=== PATIENT | male | born 2000 | race Caucasian/White ===

== ENCOUNTER 2023-01-10 12:52 | Inpatient (IN) | payer OTHER ==
[~2023-01-10] VITALS: Ht 188 cm; Wt 107.1 kg
[2023-01-10] VITALS (30 sets, daily range): BP systolic 108–135; BP diastolic 65–84
[2023-01-10 13:06] LABS: Base Excess Venous -6.3 mmol/L; Bicarbonate Venous 19.9 mmol/L (24.0-30.0); PCO2 Venous 37.5 mmHg (38-42); pH Blood Venous 7.33 (7.34-7.37)
[2023-01-10 13:10] LABS: BASOPHILS ABSOLUTE AUTO 0.05 K/mm3 (0.00-0.23); BASOPHILS PERCENT AUTO 0 % (0-2); EOSINOPHILS ABSOLUTE AUTO 0.01 K/mm3 (0.00-0.68); EOSINOPHILS PERCENT AUTO 0 % (0-6); Hematocrit 48.6 % (37.0-53.0); Hemoglobin 17.7 g/dL (13.5-17.5); IMMATURE GRAN ABSOLUTE AUTO 0.06 K/mm3 (0.00-0.10); IMMATURE GRAN PERCENT AUTO 1 % (0-1); LYMPHOCYTES ABSOLUTE AUTO 1.53 K/mm3 (0.84-5.20); LYMPHOCYTES PERCENT AUTO 13 % (21-46); MONOCYTES ABSOLUTE AUTO 0.29 K/mm3 (0.16-1.47); MONOCYTES PERCENT AUTO 2 % (4-13); Mean Corpuscular HGB 30.1 pg (26.0-34.0); Mean Corpuscular HGB Conc 36.4 g/dL (31.5-36.5); Mean Corpuscular Volume 83 fL (80-100); Mean Platelet Volume 10.4 fL (9.1-12.4); NEUTROPHILS ABSOLUTE AUTO 10.23 K/mm3 (1.96-9.15); NEUTROPHILS PERCENT AUTO 84 % (41-73); Platelet Count 276 K/mm3 (150-400); RDW Coefficient Variation 12.6 % (11.7-14.2); RDW Standard Deviation 38.1 fL (35.1-46.3); Red Blood Cell Count 5.89 M/mm3 (4.30-5.90); White Blood Cell Count 12.17 K/mm3 (4.00-11.30)
[2023-01-10 13:31] LABS: International Normalized Ratio 1.04; Prothrombin Time Results 10.9 Sec (9.7-11.5)
[2023-01-10 13:35] LABS: Alanine Aminotransfer (ALT/SGP 42 U/L (12-78); Albumin, Blood 4.4 g/dL (3.4-5.0); Albumin/Globulin Ratio 1.1 (0.8-1.8); Alk Phos 92 U/L (50-136); Anion Gap 6 mmol/L (6-16); Aspartate Aminotrans (AST/SGOT 26 U/L (12-37); Bilirubin, Total 0.3 mg/dL (0.1-1.0); Blood Urea Nitrogen 15 mg/dL (8-24); Bun/Creatinine Ratio 15.4 (12.0-20.0); CO2, Blood 21 mmol/L (21-32); Chloride, Blood 110 mmol/L (98-108); Creatinine, Blood 0.98 mg/dL (0.60-1.20); Ethanol (Alcohol), Blood, Med <3 mg/dL; Globulin, Blood 4.1 g/dL (2.2-4.0); Glomerular Filtration Rate 113 (60-); Glucose, Blood 112 mg/dL (70-99); Potassium, Blood 4.1 mmol/L (3.5-5.5); Salicylate <1.7 mg/dL (2.8-20.0); Sodium, Blood 137 mmol/L (136-145); Total Protein, Blood 8.5 g/dL (6.4-8.2)
[2023-01-10 13:35] LABS: Calcium, Ionized (POC) 1.18 mmol/L (1.10-1.46); Chloride (POC) 108 mmol/L (98-108); Glucose (ISTAT POC) 113 mg/dL (70-99); Sodium (POC) 140 mmol/L (135-148); Total CO2 (POC) 22 mmol/L (21-32)
[2023-01-10 14:42] LABS: U Amphetamine Screen Not Detected; U Barbituate Screen Not Detected; U Benzodiazapine Screen DETECTED; U Buprenorphine Screen Not Detected; U Cannabinoids Screen Not Detected; U Cocaine Screen Not Detected; U Methadone Screen Not Detected; U Methamphetamine Screen DETECTED; U Opiates Screen Not Detected; U Oxycodone Screen Not Detected; U Phencyclidine Screen Not Detected; U Propoxyphene Screen Not Detected
[2023-01-10 18:13] LABS: Alanine Aminotransfer (ALT/SGP 42 U/L (12-78); Albumin, Blood 3.5 g/dL (3.4-5.0); Alk Phos 75 U/L (50-136); Aspartate Aminotrans (AST/SGOT 18 U/L (12-37); Bilirubin, Direct <0.1 mg/dL (0.0-0.3); Bilirubin, Indirect Unable to Calculate mg/dL (0.1-0.7); Bilirubin, Total 0.2 mg/dL (0.1-1.0); Globulin, Blood 3.5 g/dL (2.2-4.0)
--- NOTE | 2023-01-10 18:30 | NUR ---
DAY SHIFT SUMMARY PT ARRIVED FROM ER JUST BEFORE 1700 INTUBATED ON THE VENTILATOR. PT INTUBATED W 8.0 ET TUBE THAT WAS ADVANCED FROM 24CM TO 26CM BY RT PER DR. KAM ORDER, NO REPEAT XRAY PER DR. KAM. PT'S VENT UNCHANGED W SETTINGS 16/550/5.0 W 30%FIO2. SPO2 100% ON THESE SETTINGS. PT ARRIVED TO THE UNIT W MONITOR SHOWING SB 58 BUT HAS MAINTAINED SR 60'S FOR MOST OF HER TIME IN ER. BP WNL AND STABLE. PT AFEBRILE W TEMP 97.3. PT LS CLEAR EXCEPT FOR SOME MINOR RHONCI HEARD IN THE RUL. PT HAS NEAL CATHETER THAT HAD 250ML VERY CLEAR YELLOW URINE EMPTIED THIS SHIFT. PROPOFOL GTT RUNNING AT 60, FENTANYL AGRICULTURAL RESEARCH DIRECTOR RUNNING AT 50MC/HR. ACETADOTE RUNNING PER EMAR. WILL REPORT TO EVIE STEINER
[2023-01-10 20:20] LABS: Base Excess Venous -4.3 mmol/L; Bicarbonate Venous 21.4 mmol/L (24.0-30.0); PCO2 Venous 37.1 mmHg (38-42); pH Blood Venous 7.36 (7.34-7.37)
--- NOTE | 2023-01-10 21:46 | NUR ---
ASSUMED CARE CARE WAS ASSUMED OF PT AT 1900, REPORT GIVEN BY SHORTY STEINER. PT INTUBATED AND SEDATED. PROPOFOL GTT @ 60 MCG/KG/MIN. FENTANYL GTT @ 50 MCG/HR. RASS -3, PT OPENS EYES TO VOICE AND PAINFUL STIMULI BUT DOES NOT MAKE EYE CONTACT. PT TEARFUL WHEN AWAKE. PT IN BILATERAL SOFT WRIST RESTRAINTS FOR SAFETY. WHEN AWAKE PT WILL BEGIN TO PULL AGAINST RESTRAINTS AND FLEX LEGS IN THE BED. PT IS DIFFICULT TO CONSOLE, BUT EVENTUALLY RELAXES AND FALLS BACK ASLEEP. PT TOLERATING VENT WELL. VENT SETTINGS AC/VC 16/550/5/30%. O2 SATS 100%. CARDIAC MONITORING REFLECTS NSR, SBP 120s-130s. HR 60s. NAC GTT INFUSING. PT RECIEVING CHARCOAL Q4 HRS. TEMP NEAL PATENT AND DRAINING TO GRAVITY. TEMP PROBE NOT WORKING.
--- NOTE | 2023-01-10 22:01 | NUR ---
SPOKE WITH POISON CONTROL ON THE PHONE AROUND 1999. GAVE CHECKING CLERK UPDATE ON PT STATUS INCLUDING RECENT LABS AND VITALS SIGNS. CHECKING CLERK STATED THAT NAC CAN LIKELY BE STOPPED ONCE ACETAMINOPHEN LEVEL < 10 AND AST/ALT < 50.
[2023-01-11] VITALS (88 sets, daily range): BP systolic 108–141; BP diastolic 64–101
[2023-01-11 04:12] LABS: Magnesium, Blood 1.8 mg/dL (1.6-2.4)
[2023-01-11 04:15] LABS: Acetaminophen, Random <2.0 ug/mL (10.0-30.0); Alanine Aminotransfer (ALT/SGP 36 U/L (12-78); Albumin, Blood 3.5 g/dL (3.4-5.0); Alk Phos 74 U/L (50-136); Anion Gap 6 mmol/L (6-16); Aspartate Aminotrans (AST/SGOT 20 U/L (12-37); Bilirubin, Total 0.2 mg/dL (0.1-1.0); Blood Urea Nitrogen 10 mg/dL (8-24); Bun/Creatinine Ratio 11.3 (12.0-20.0); CO2, Blood 20 mmol/L (21-32); Calcium, Blood 8.5 mg/dL (8.5-10.1); Chloride, Blood 114 mmol/L (98-108); Creatinine, Blood 0.88 mg/dL (0.60-1.20); Globulin, Blood 3.4 g/dL (2.2-4.0); Glomerular Filtration Rate 125 (60-); Glucose, Blood 98 mg/dL (70-99); Potassium, Blood 3.8 mmol/L (3.5-5.5); Sodium, Blood 140 mmol/L (136-145); Total Protein, Blood 6.9 g/dL (6.4-8.2)
--- NOTE | 2023-01-11 05:57 | NUR ---
SHIFT SUMMARY PT REMAINS INTUBATED AND SEDATED. PROPOFOL CURRENTLY INFUSING @ 65 MCG/KG/MIN. FENTANYL INFUSING AT 50 MCG/HR. RASS -3 WHEN PT RESTING, RASS +1 WHEN AWAKE. PT CONTINUES TO BE IN BILATERAL SOFT WRIST RESTRAINTS. WHEN PT BECOMES ANXIOUS HE BEGINS TO PULL AGAINST RESTRAINTS TOWARDS ETT TUBE, ATTEMPTS TO SIT UP IN BED, TURNS HEAD BACK AND FORTH, AND IS TEARFUL. PT IS ABLE TO MAKE EYE CONTACT. PT IS DIFFICULT TO CONSOLE. VENT SETTINGS REMAIN AC/VC 16/550/5/30%. PT TOLERATES WELL WHEN RELAXED, BUT BEGINS TO BREATHE OVER VENT WHEN THRASHING AROUND IN BED. O2 SATS HAVE REMAINS AT 100%. CARDIAC MONITORING HAS REFLECTED NSR, HR 80s AT THIS TIME. SBP 120s-130s. REPEAT EKG DONE, SEE CHART FOR MORE. NEAL PATENT AND DRAINING TO GRAVITY. PT RECIEVED Q4 HR CHARCOAL THIS SHIFT WITH NAC STILL INFUSING.
--- NOTE | 2023-01-11 10:51 | NUR ---
SPOKE WITH FRIEND VANESSA JOY RE PT'S VEHICLE/BELONGINGS VANESSA CALLED CONCERNED THAT PATIENT'S CARE IS GOING TO BE TOWED FROM THE [facility] HERE IN [place]. VANESSA LIVES IN [place], HAS THE BILL OF SALE AND TITLE ON THE VEHICLE AND REPORTS "THIS IS WHAT PUT HIM OVER THE EDGE-IT BROKE DOWN" & SHE ALSO REPORTS HE IS IN THE PROCESS OF MOVING AND HAD TO GIVE HIS DOG AWAY, LOTS OF STRESSORS. CARE MANAGEMENT STATES WE ALSO NEEDS MOTHER'S CONSENT PRIOR TO GIVING VANESSA THE KEYS. KEYS AND PHONE ARE LOCKED UP IN THE CABINET IN THE DIRTY UTILITY HOLD. VANESSA PLANS TO COME UP TOMORROW AFTERNOON AND SHOW PROOF OF OWNERSHIP SO SHE CAN GET THE TRUCK TOWED AND FIXED. HER NUMBER IS [phone]
[2023-01-11 11:47] LABS: Alanine Aminotransfer (ALT/SGP 27 U/L (12-78); Albumin, Blood 3.4 g/dL (3.4-5.0); Albumin/Globulin Ratio 0.9 (0.8-1.8); Alk Phos 77 U/L (50-136); Anion Gap 7 mmol/L (6-16); Aspartate Aminotrans (AST/SGOT 27 U/L (12-37); Bilirubin, Total 0.4 mg/dL (0.1-1.0); Blood Urea Nitrogen 7 mg/dL (8-24); Bun/Creatinine Ratio 8.1 (12.0-20.0); CO2, Blood 21 mmol/L (21-32); Calcium, Blood 8.5 mg/dL (8.5-10.1); Chloride, Blood 116 mmol/L (98-108); Creatinine, Blood 0.87 mg/dL (0.60-1.20); Globulin, Blood 3.7 g/dL (2.2-4.0); Glomerular Filtration Rate 126 (60-); Glucose, Blood 112 mg/dL (70-99); Potassium, Blood 4.3 mmol/L (3.5-5.5); Sodium, Blood 144 mmol/L (136-145); Total Protein, Blood 7.1 g/dL (6.4-8.2)
[2023-01-11 11:48] LABS: Acetaminophen, Random <2.0 ug/mL (10.0-30.0)
--- NOTE | 2023-01-11 12:55 | NUR ---
Confirmed with Officer Jacky that Patients next of kin is Mother Matthieu Blackburn. The patient has a BMW car at the hotel in which the keys here at the hospital. Next of kin updated in chart through Mikel in Registration, YAZ Cristina updated with confirmed contact as well as not releasing any information or belongings to anyone other than the mom.
--- NOTE | 2023-01-11 18:34 | NUR ---
Shift summary. Assumed care at 0700, bedside report received.Pt continues ventilated and sedated. Vent settings: spont 10/5, 30%. OG tube clamped. Pt very restless in bed this shift, PRN sedation adjuncts required in order to safely clean and change linens. Propofol titrated up to 80 mcg/kg/min at the beginning of shift, fentanyl infusing at 50 mcg/hr, precedex added this afternoon as additional sedation adjunct, currently infusing at 0.8 mcg/kg/hr. Attempted sedation wean at 1615 this afternoon, pt initially following commands but quickly became agitated and attempted to self-extubate. Dr. Fitzgerald, charge accounts audit clerk, additional RN and security called to room in order to keep the patient from self harm while sedation was reapplied. Pt pulled r/ac IV and r/wrist IV during event. Powerglide placed in KIMBERLY. Wilson catheter remains in place. Q2 turns attempted, pt very restless, constantly shifting weight. VS stable throughout shift. See chart for further details. Will report off to nightshift RN.
--- NOTE | 2023-01-11 22:40 | NUR ---
ASSUMED CARE CARE WAS ASSUMMED OF PT AT 1900, REPORT GIVEN BY GILMAR STEINER. PT REMAINS INTUBATED AND SEDATED. PROPOFOL @ 80 MCG/KG/MIN, PRECEDEX 0.8 MCG/KG/HR AND FENTANYL GTT @ 50 MCG/HR. PT'S VENT SETTINGS SPONT/PS; PS 10, Fi02 30%, PEEP 5. PT TOLERATING WELL, O2 SATS > 95%. CARDIAC MONITORING REFLECTS NSR, SBP 120s, HR 80s. PG SL. NEAL PATENT AND DRAINING TO GRAVITY. BILATERAL WRIST RESTRAINTS IN PLACE.
[2023-01-11 22:49] LABS: Albumin, Blood 3.6 g/dL (3.4-5.0); Bilirubin, Total 0.5 mg/dL (0.1-1.0); Bun/Creatinine Ratio 5.9 (12.0-20.0); Calcium, Blood 8.7 mg/dL (8.5-10.1); Creatinine, Blood 0.85 mg/dL (0.60-1.20); Globulin, Blood 3.6 g/dL (2.2-4.0); Total Protein, Blood 7.2 g/dL (6.4-8.2)
[2023-01-12] VITALS (96 sets, daily range): BP systolic 111–154; BP diastolic 65–112
[2023-01-12 04:26] LABS: BASOPHILS ABSOLUTE AUTO 0.04 K/mm3 (0.00-0.23); BASOPHILS PERCENT AUTO 0 % (0-2); EOSINOPHILS ABSOLUTE AUTO 0.05 K/mm3 (0.00-0.68); EOSINOPHILS PERCENT AUTO 0 % (0-6); Hematocrit 41.6 % (37.0-53.0); Hemoglobin 14.3 g/dL (13.5-17.5); IMMATURE GRAN ABSOLUTE AUTO 0.07 K/mm3 (0.00-0.10); IMMATURE GRAN PERCENT AUTO 1 % (0-1); LYMPHOCYTES PERCENT AUTO 16 % (21-46); MONOCYTES ABSOLUTE AUTO 1.05 K/mm3 (0.16-1.47); MONOCYTES PERCENT AUTO 7 % (4-13); Mean Corpuscular HGB 29.2 pg (26.0-34.0); Mean Corpuscular HGB Conc 34.4 g/dL (31.5-36.5); Mean Corpuscular Volume 85 fL (80-100); Mean Platelet Volume 10.5 fL (9.1-12.4); NEUTROPHILS ABSOLUTE AUTO 11.12 K/mm3 (1.96-9.15); NEUTROPHILS PERCENT AUTO 76 % (41-73); Platelet Count 204 K/mm3 (150-400); RDW Coefficient Variation 12.6 % (11.7-14.2); RDW Standard Deviation 39.1 fL (35.1-46.3); Red Blood Cell Count 4.89 M/mm3 (4.30-5.90); White Blood Cell Count 14.73 K/mm3 (4.00-11.30)
[2023-01-12 04:39] LABS: Bun/Creatinine Ratio 5.6 (12.0-20.0); Calcium, Blood 8.5 mg/dL (8.5-10.1); Creatinine, Blood 0.9 mg/dL (0.60-1.20); Potassium, Blood 4.1 mmol/L (3.5-5.5)
--- NOTE | 2023-01-12 05:57 | NUR ---
SHIFT SUMMARY PT REMAINS INTUBATED AND SEDATED. PROPOFOL @ 75 MCG/KG/MIN, PRECEDEX @ 0.8 MCG/KG/HR, FENTANYL @ 50 MCG/HR. SEDATION WAS MINIMALLY TITRATED DOWN THIS SHIFT D/T PT GETTING ANXIOUS/RESTLESS WHENEVER TITRATION IS STOPPED FOR A SHORT AMOUNT OF TIME. ORDERS WERE ALSO RECIEVED BY DR. KAM FOR NO SEDATION VACATION THIS SHIFT. PT REMAINS ON SPONT/PS, PS 10, PEEP 5, FiO2 30%. PT HAS TOLERATED WELL, O2 SATS > 95%. CARDIAC MONITORING REFLECTED NSR THIS SHIFT. SBP 110s-120s. HR 70s-80s. PG SL. NEAL PATENT AND DRAINING TO GRAVITY. PT CONTINUES TO BE IS SOFT BILATERAL WRIST RESTRAINTS.
--- NOTE | 2023-01-12 07:00 | NUR ---
ASSUMPTION OF CARE: ASSUMED CARE OF PATIENT WITH JATIN MALDONADO. PATIENT LYING IN BED. ON SPONTANEOUS VENTILATION. SETTINGS 01/5030%. RR ARE 18-20, SPO2 97%. BREATHING LOOKS EVEN AND UNLABORED. LUNG SOUNDS CLEAR AND DIMINISHED IN THE BASES. PATIENT ETT 8.0 CM WITH 25 AT THE TEETH. SBPS IN THE 100S-120S. HR IN THE 70S. NO SIGNS OF DISTRESS. PATIENT APPEARS CALM AND COMFORTABLE. FENTANYL AT 50 MCG/HR. PROPOFOL AT 75 MCG/KG/MIN. PRECEDEX AT 0.8 MCG/KG/MIN.
--- NOTE | 2023-01-12 09:15 | NUR ---
PLANNED EXTUBATION THIS MORNING: IN PREPARATION FOR EXTUBATION THIS MORNING, PRECEDEX INCREASED TO 1.4 MCG/KG/HR WHILE TITRATING OTHER DRIPS DOWN PER DR. KAM. PROPOFOL AT 65 MCG/KG/MIN AND FENTANYL DOWN TO 25 MCG/HR.
--- NOTE | 2023-01-12 10:45 | NUR ---
EXTUBATION: PATIENT EXTUBATED AT 10:40. PATIENT TRANSITIONED TO 2L VIA NC. PROPROFOL GTT AND FENTANYL GTT DC'D PRIOR TO EXTUBATION. PRECEDEX CONTINUES AT 1.4 MCG/KG/HR. BREATHS ARE EVEN AND SHALLOW. SPO2 97%. RESPIRATIONS 22-32 RPM. PATIENT CONTINUES TO BE DROWSY. ASKING QUESTIONS. CLEARED 104 MLS FROM FENTANYL. WASTED 58 MLS FENTANYL. VERIFIED WITH JATIN CHEN AND ERICA BLACK RN.
--- NOTE | 2023-01-12 11:34 | NUR ---
PT WOKE UP SHORTLY AFTER EXTUBATION, CRYING, AGITATED, AND PULLING ON RESTRAINTS. PT WITH SEVERAL PARANOID THOUGHTS. PT INITIALLY STATED HE THOUGHT HE WAS "BEING HELD CAPTIVE IN OUTERSPACE". SHORTLY AFTER THIS PATIENT ABLE TO STATE WHY HE WAS IN THE HOSPITAL, "I OD'D. I SHOULDNT BE HERE, I WANT TO , I'M GOING TO KILL MYSELF, AND YOU CAN'T STOP ME". MY COUGHED UP LARGE COPIOUS AMT OF THICK GUTIERREZ SECRETIONS, WOULD NOT ALLOW STAFF TO CLEAN SERETIONS OR SUCTION HIM, PT THEN STARTED THRASHING IN BED AND PULLING ON RESTRAINTS. ATIVAN 2MG GIVEN. PRECEDEX GTT AT 1.4MCG. PT ALSO STATED THAT HE THOUGHT STAFF WAS GOING TO HURT HIM. AT THIS TIME PT IS AWAKE AND CRYING. PT STATES, "DON'T TELL MY MOM OR ANYONE ANY INFORMATION ABOUT ME. I SHOULD HAVE . WHY DID YOU SAVE ME. I'M IN SO MUCH PAIN EVERY DAY, YOU DON'T KNOW MY PAIN, YOU DON'T UNDERSTAND. I SHOULDN'T HAVE TO LIVE WITH THIS PAIN EVERY DAY OF MY LIFE." PT IN 4POINT TOUGH CUFF RESTRAINTS, WILL DC'D WHEN APPROPRIATE. WILL TITRATE PRECEDEX DOWN KEN. DR HUDSON AT BEDSIDE SHORTLY AFTER EXTUBATION. PT PLACED ON HOLD. PSYCH CONSULT PLACED. 1:1 SITTER AT BEDSIDE.
--- NOTE | 2023-01-12 12:00 | NUR ---
Belongings Car keys, phone and extra phone battery given to Severance in security to place with pts wallet. Only belongings in ICU soiled utility cupboard are his underwear in white plastic bag with pt label.
--- NOTE | 2023-01-12 12:15 | NUR ---
DR KAM AT BEDSIDE. PT CRYING, STATES HE IS "IN A SPACESHIP", "I'M AN ALIEN", "I ONLY HAVE 4 FINGERS". PT IN DISTRESS, MI COYNE ORDERED.
--- NOTE | 2023-01-12 13:19 | NUR ---
PRIOR TO ZYPREXA IM PT BECAME VERY AGITATEDF, THRASHING IN BED, CRYING OUT, "LET ME ". ATIVAN 2MG GIVEN. AT 1300 PT BECAME VERY AGITATED AGAIN, THRASHING IN BED, SCREAMING AND PULLING ON RESTRAINTS. PT KICKED END OF BED, BREAKING END OF BED AND BREAKING IT OFF AT HIGH IMPACT. DR KAM AT BEDSIDE. 4MG ATIVAN GIVEN, SECURITY AT BEDSIDE.
--- NOTE | 2023-01-12 13:58 | NUR ---
MARKED CONFIDENTIAL PT HAS BEEN MARKED CONFIDENTIAL, NO VISITORS OR INFORMATION TO BE GIVEN VIA PHONE OR IN PERSON REGARDING PATIENT.
--- NOTE | 2023-01-12 15:47 | NUR ---
SEVERE AGITATION: ATTEMPTED TO DECREASE VERSED GTT. PATIENT DECREASED TO 1 MG/HR. PATIENT QUICKLY BECAME INCREASINGLY AGITATED, VERBALLY AND PHYSICALLY. YELLING "PLEASE LET ME OUT". PATIENT UNABLE TO UNDERSTAND AND/OR FOLLOW EXPLANATIONS AND DIRECTIONS FROM STAFF. PATIENT UNABLE TO FOLLOW DIRECTIONS AND STOP HIS THRASHING. PATIENT TRASHING VIOLENTLY IN THE BED, SWINGING BODY SIDE TO SIDE, PULLING AT RESTRAINTS AND VIOLENTLY SHAKING THE BED. PATIENT BITING AT LINES. PATIENT VIOLENTLY BEATING HEAD AGAINST HEAD SIDE RAILS. BROUGHT EXTRA HELP INTO THE ROOM, INCLUDING DR. KAM. SECURITY CALLED RELATED TO CONCERN THAT THE PATIENT WOULD BE ABLE TO GET HIMSELF OVER THE SIDE RAILS AND/OR INJURY HIMSELF ON THE BED. PATIENT MEDICATED PER PRN ATIVAN. NEW ORDER OF IV HALDOL. PATIENT MEDICATED PER NEW ORDERS. VERSED GTT INCREASED TO 7MG/HR PER DR. KAM. SEIZURE PADS PLACED ON THE SIDE RAILS.
--- NOTE | 2023-01-12 17:43 | NUR ---
SECURITY CALLED TO ASSIST WITH BEDBATH. LARGE AMT OF LIQUID CHARCOAL BM CLEANED. LINENS CHANGED. VERSED AT 7MG/HR; STAYING AT THIS RATE FOR NOW PER DR KAM. PT WAS COOPERATIVE WITH BATH, DROWSY; FALLS ASLEEP DURING CONVERSATION BUT AWAKENS TO VOICE PROMPT. DR HIDALGO W PSYCH IN TO SEE PT, FULL UPDATE GIVEN. ZYPJOCELYNE FUNES'D, HALDOL ORDERED PER DR HIDALGO.
--- NOTE | 2023-01-12 18:30 | NUR ---
DR KAM IN TO CHECK ON PT, UPDATE GIVEN. PT ASSISTED TO LEFT SIDE. 1:1 SITTER AT BEDSIDE. etCO2 WAS PLACED ON PT WHEN VERSED GTT STARTED, 31-33. SPO2 98% ON RA
--- NOTE | 2023-01-12 18:37 | NUR ---
SHIFT SUMMARY: BY THE END OF SHIFT, PATIENT IS CALM AND COOPERATIVE WITH STAFF. PATIENT ABLE TO ASK TO BE REPOSITIONED ON HIS SIDE AND FOLLOWING DIRECTIONS TO GET INTO A COMFORTABLE POSITION. VERSED GTT CONTINUES TO BE AT 7 MG/HR PER DR. KAM. ETCO2 MONITORING NC IN PLACE. END TIDAL CO2 LEVELS CONTINUE TO BE WITHIN NORMAL LIMITS. SPO2 AT 98-100%. IMPROVED LOWER LUNG BREATH SOUNDS BY THE END OF SHIFT. NO DISTRESS NOTED. PATIENT ANSWERING QUESTIONS. PATIENT CONTINUES TO BE DROWSY AND FALLS ASLEEP WITHOUT DIRECT STIMULI. AWAKENS TO VERBAL STIMULI.
--- NOTE | 2023-01-12 19:00 | NUR ---
ASSUMED CARE CARE WAS ASSUMED OF PT AT 1900, REPORT GIVEN BY ERICA STEINER. PT SEDATED WITH VERSED GTT, INFUSING @ 7 MG/HR. PT IS ABLE TO AWAKEN WITH VERBAL STIMULI, AND IS CONSOLABLE. PT STATES HE DOESN'T KNOW WHERE HE IS AT AND WAS UNABLE TO SAY WHAT YEAR IT IS. PT NOT AGITATED AT THIS TIME. 1:1 SITTER PRESENT WITH PATIENT. UNABLE TO FULLY ASSESS PT'S SUICIDAL IDEATIONS AT THIS TIME D/T ORIENTATION. PT ON RA, WITH ETCO2 MONITORING D/T RECIEVING SEDATION. ETCO2 LOW 30s. O2 SATS > 95%. CARDIAC MONITORING REFLECTS SINUS TACH, HR 110s. SBP 130s-140s. PT REMAINS IN 4 POINT TOUGH-CUFFS FOR SAFETY. NEAL CATHETER PATENT AND DRAINING TO GRAVITY. PT CONTINUES TO HAVE LARGE, BLACK, LIQUID STOOL WHICH IS CONSISTENT WITH RECIEVING CHARCOAL PREVIOUS SHIFTS.
[2023-01-13] VITALS (85 sets, daily range): BP systolic 110–162; BP diastolic 64–114
[2023-01-13 03:53] LABS: BASOPHILS ABSOLUTE AUTO 0.09 K/mm3 (0.00-0.23); BASOPHILS PERCENT AUTO 1 % (0-2); EOSINOPHILS ABSOLUTE AUTO 0.08 K/mm3 (0.00-0.68); EOSINOPHILS PERCENT AUTO 1 % (0-6); Hemoglobin 13.9 g/dL (13.5-17.5); IMMATURE GRAN ABSOLUTE AUTO 0.13 K/mm3 (0.00-0.10); IMMATURE GRAN PERCENT AUTO 1 % (0-1); LYMPHOCYTES ABSOLUTE AUTO 2.44 K/mm3 (0.84-5.20); LYMPHOCYTES PERCENT AUTO 14 % (21-46); MONOCYTES ABSOLUTE AUTO 1.25 K/mm3 (0.16-1.47); MONOCYTES PERCENT AUTO 7 % (4-13); Mean Corpuscular HGB 29.4 pg (26.0-34.0); Mean Corpuscular HGB Conc 34.8 g/dL (31.5-36.5); Mean Corpuscular Volume 85 fL (80-100); Mean Platelet Volume 10.8 fL (9.1-12.4); NEUTROPHILS ABSOLUTE AUTO 13.44 K/mm3 (1.96-9.15); NEUTROPHILS PERCENT AUTO 77 % (41-73); Platelet Count 200 K/mm3 (150-400); RDW Coefficient Variation 12.8 % (11.7-14.2); RDW Standard Deviation 39.3 fL (35.1-46.3); Red Blood Cell Count 4.73 M/mm3 (4.30-5.90); White Blood Cell Count 17.43 K/mm3 (4.00-11.30)
[2023-01-13 04:17] LABS: Albumin, Blood 3.3 g/dL (3.4-5.0); Albumin/Globulin Ratio 0.8 (0.8-1.8); Bilirubin, Total 0.6 mg/dL (0.1-1.0); Calcium, Blood 8.6 mg/dL (8.5-10.1); Creatinine, Blood 0.89 mg/dL (0.60-1.20); Potassium, Blood 3.4 mmol/L (3.5-5.5); Total Protein, Blood 7.3 g/dL (6.4-8.2)
--- NOTE | 2023-01-13 05:26 | NUR ---
SHIFT SUMMARY PT IS ALERT AND ORIENTED TO SELF AND OCCASIONALLY PLACE. THROUGHOUT THE SHIFT PT'S ORIENTATION WAS ASSESSED AND OFTEN PT WOULD NOT BE ABLE TO SAY WHERE HE WAS. PT REMAINS IN FOUR POINT TOUGH-CUFFS. PT WOULD OCCASIONALLY GET AGITATED T/O THE SHIFT BUT DID NOT HAVE ANY OUT BURSTS. WHEN ASKED, PT STATED HE DID NOT HAVE SUICIDAL IDEATIONS. PT'S VERSED GTT @ 7 MG/HR. PT ON RA WITH ETCO2 MONITORING D/T SEDATION BEING GIVEN. ETCO2 HAS STAYED AROUND 30 THIS SHIFT. O2 SATS > 95%. CARDIAC MONITORING REFLECTED SINUS TACH, HR 110s. SBP 120s-130s. NEAL PATENT AND DRAINING TO GRAVITY. PT HAS HAD MULTIPLE INCONTINENT BMs THIS SHIFT. WILL CONTINUE TO MONITOR UNTIL CARE IS TRANSITIONED TO DAY SHIFT.
--- NOTE | 2023-01-13 07:00 | NUR ---
ASSUMPTION OF CARE: ASSUMED CARE OF PATIENT WITH KRISTY VINES RN. PATIENT RESTING CALMLY IN BED. PATIENT WORKING TO OPEN EYES AND FOLLOW DIRECTIONS WITH VERBAL STIMULI. VERSED GTT CONTINUES AT 7 MG/HR. PATIENT SHIFTING WEIGHT INDEPENDENTLY IN THE BED. NEAL IN PLACE. URINE IS DARK YELLOW. PATIENT ON RA WITH SPO2 IN THE HIGH 90S. HR IS TACHY IN THE LOW 100S. SBP IN THE 120S TO 140S.
--- NOTE | 2023-01-13 07:59 | NUR ---
Case analysis requested and performed. Medical history, clinical notes, and demographics reviewed. Concerns expressed relating to the proper selection and appointment of a substitute decision maker; while the principal recovers from his incapacitation. In his post extubation condition, the principal is reported to have adamantly voiced his preference to be listed as confidential, and was sternly refusing outside green party involvement. If these statements have been validated and were credibly witnessed i.e. they were observed when the principal was in a lucid condition, then they should be unreservedly honored. If the principal decompensates and is unable to make health care choices independantly; to maintain compliance with [place] Statutory provisions, and shield the principal from a breach of requested privacy; assuming the mother has not been disqualified in writing by the patient from serving as proxy, the hospital would default to her for treatment planning (ORS 127.635). If she were formally disallowed from acting on his behalf, or she preferred to delegate that responsibility, then the ethics committee would be appointed to give informed consent on his behalf, for medically necessary services per ORS 127.760. Thank you for this consult. Andrae Ayon, PhD, TINY
[2023-01-13 08:56] LABS: Source, Urine Foley catheter
[2023-01-13 09:03] LABS: Appearance, Urine Clear (Clear); Bilirubin, Urine Neg (Neg); Blood, Urine 2+ (Neg); Color, Urine Yellow (P-Yellow); Glucose Qualitative, Urine Neg (Neg); Ketones, Urine 4+ (Neg); Leukocyte Esterase, Urine 1+ (Neg); Nitrite, Urine Neg (Neg); Protein, Urine 2+ (Neg); Specific Gravity, Urine 1.025 (1.003-1.022); Urobilinogen, Urine NORM (Normal)
[2023-01-13 11:44] LABS: White Blood Cells, Urine 0-2 /hpf (0-5)
[2023-01-13 11:45] LABS: Bacteria Few /hpf; Mucus Light (0-Heavy); Squamous Epithelial Cells Rare /hpf (Few)
--- NOTE | 2023-01-13 18:42 | NUR ---
SHIFT SUMMARY: NEURO: PATIENT HAD INCREASING ALERTNESS THROUGHOUT THE DAY. PATIENT ABLE TO TELL RN THAT HE WAS IN THE HOSPITAL AND WHY HE WAS HERE. PATIENT NOT ORIENTED TO YEAR OR TIME OF DAY. PATIENT CONTINUES TO BE DROWSY, BUT ABLE TO STAY AWAKE TO EAT. PATIENT ABLE TO MAKE HIS NEEDS KNOWN. PATIENT CALM AND COOPERATIVE. IMPROVED FINE MOTOR SKILLS THE DAY PROGRESSED. PSYCHSOCIAL: PATIENT REQUESTED THAT NO INFORMATION BE RELASED TO FAMILY OR FRIENDS AT THIS TIME. PATIENT RESPONDS TO SOME QUESTIONS, BUT NOT TO OTHERS. DIFFICULT TO ASSESS IF THIS IS PURPOSEFUL OR RELATED TO SEDATIVE MEDICATIONS CLEARING FROM HIS SYSTEM. PATIENT CALM AND COOPERATIVE. PATIENT WITHDRAWN. PATIENT DID NOT SHOW SIGNS OF AGITATION, AGRESSION OR SELF HARM. CONTINUES TO HAVE 1:1 SITTER. CARDIAC: PATIENT SINUS TO SINUS TACHY. PATIENT DENIES CHEST PAIN OR DISCOMFORT. SBPS IN THE 120S - 140S. MAPS >65. RESPIRATORY: LUNG SOUNDS REMAINED CLEAR. PATIENT REMAINED STABLE ON RA WITH SPO2 AT 98%. NO SPUTUM NOTED TODAY. BREATHING EVEN AND REGULAR. GI: CONTINUES TO HAVE BLACK STOOL R/T CHARCOL ADMINISTRATION. PATIENT DENIES NAUSEA. PATIENT TOLERATING PO SOLIDS AND FLUIDS. : NEAL DISCONTINUED TODAY. PATIENT IS DUE TO VOID. PATIENT DENIES URGE. MUSCULOSKELETAL: PATIENT'S MOVEMENT AND STRENGTH INTACT THROUGHOUT ALL 4 EXTREMITIES. RELATED TO PATIENT'S DROWSINESS, MAINTAINED BEDREST FOR TODAY. PATIENT REPOSITIONING INDEPENDENTLY IN THE BED. DENIES PAIN AT REST OR WITH MOTION.
--- NOTE | 2023-01-13 19:15 | NUR ---
ASSUMPTION OF CARE: RECEIVED REPORT FROM RUPESH STEINER. PT APPEARS TO BE DROWSY/ TIRED BUT AWAKENS TO VERBAL STIMULI. ABLE TO ANSWER QUESTIONS AND MAKE NEEDS KNOWN. DENIES ANY SUICIDAL IDEATION AT THIS TIME. ALERT AND ORIENTED TO PERSON, PLACE AND SITUATION. UNAWARE OF THE DAY/TIME. LUNGS SOUNDS CLEAR IN THE UPPER LOBES AND DIMINISHED IN THE BASES. ON RA WITH SATS >90%. DENIES ANY SOB. CARDIAC MONITORING IN PLACE, SINUS RHYTHM WITH RATE IN THE 80'S-100'S. DENIES CHEST PAIN OR PRESSURE. BLADDER SCAN DONE POST NEAL REMOVAL WHICH SHOWED 373 ML, PT ATTEMPTED TO USE URINAL AND WAS UNSUCCESSFUL AT THIS TIME. SMALL BLACK BM CONSISTENT WITH CHARCOAL THAT WAS GIVEN. PT C/O STOMACH PAIN AND HAS A HEADACHE, PROVIDED REPOSITIONING AND TURNED THE LIGHTS OFF FOR REST. 1:1 SITTER AT THE DOOR FOR HIGH RISK SI PRECAUTIONS. PT EDUCATED ON THE IMPORTANCE OF THE SITTER AND EDUCATED ON THE 2MD HOLD. PT COMPLIANT WITH STAFF AT THIS TIME. POWERGLIDE TO KIMBERLY, SALINE LOCKED CURRENTLY. ABLE TO TOLERATE WATER AND A SNACK PO.
[2023-01-14] VITALS (32 sets, daily range): BP systolic 105–149; BP diastolic 61–98
[2023-01-14 04:40] LABS: BASOPHILS ABSOLUTE AUTO 0.06 K/mm3 (0.00-0.23); BASOPHILS PERCENT AUTO 1 % (0-2); EOSINOPHILS ABSOLUTE AUTO 0.14 K/mm3 (0.00-0.68); EOSINOPHILS PERCENT AUTO 1 % (0-6); Hematocrit 39.5 % (37.0-53.0); Hemoglobin 13.6 g/dL (13.5-17.5); IMMATURE GRAN ABSOLUTE AUTO 0.07 K/mm3 (0.00-0.10); IMMATURE GRAN PERCENT AUTO 1 % (0-1); LYMPHOCYTES ABSOLUTE AUTO 2.15 K/mm3 (0.84-5.20); LYMPHOCYTES PERCENT AUTO 20 % (21-46); MONOCYTES ABSOLUTE AUTO 0.78 K/mm3 (0.16-1.47); MONOCYTES PERCENT AUTO 7 % (4-13); Mean Corpuscular HGB 29.1 pg (26.0-34.0); Mean Corpuscular HGB Conc 34.4 g/dL (31.5-36.5); Mean Corpuscular Volume 84 fL (80-100); Mean Platelet Volume 10.2 fL (9.1-12.4); NEUTROPHILS ABSOLUTE AUTO 7.34 K/mm3 (1.96-9.15); NEUTROPHILS PERCENT AUTO 70 % (41-73); Platelet Count 200 K/mm3 (150-400); RDW Standard Deviation 39.4 fL (35.1-46.3); Red Blood Cell Count 4.68 M/mm3 (4.30-5.90); White Blood Cell Count 10.54 K/mm3 (4.00-11.30)
[2023-01-14 05:04] LABS: Albumin, Blood 3.1 g/dL (3.4-5.0); Albumin/Globulin Ratio 0.7 (0.8-1.8); Bilirubin, Total 0.5 mg/dL (0.1-1.0); Bun/Creatinine Ratio 9.3 (12.0-20.0); Calcium, Blood 8.7 mg/dL (8.5-10.1); Creatinine, Blood 0.86 mg/dL (0.60-1.20); Globulin, Blood 4.2 g/dL (2.2-4.0); Potassium, Blood 3.6 mmol/L (3.5-5.5); Total Protein, Blood 7.3 g/dL (6.4-8.2)
--- NOTE | 2023-01-14 05:51 | NUR ---
SHIFT SUMMARY: PT REMAINS ALERT AND ORIENTED X4. CALM AND COOPERATIVE WITH CARE T/O THE SHIFT. ABLE TO ANSWER QUESTIONS AND MAKE NEEDS KNOWN. PT DENIES SUICIDAL IDEATION. REMAINS ON RA T/O THE SHIFT WITH SPO2 >92%. DENIES SOB. CARDIAC MONITORING IN PLACE SINUS RHYTHM, HR 80'S. DENIES CHEST PAIN OR PRESSURE. BLADDER SCANNED FREQUENTLY T/O THE SHIFT, PT ATTEMPTED TO VOID AND WAS UNSUCCESSFUL. STRAIGHT CATHED WITH 1000 ML URINE OUTPUT. SMALL BM EARLY IN THE SHIFT. POWERGLIDE TO KIMBERLY, FLUSHES WELL DOES NOT DRAW. SALINE LOCKED AT THIS TIME. PT ABLE TO SLEEP OFF AND ON T/O THE SHIFT. STILL HAS C/O HEADACHE, WORSENED WITH THE LIGHTS. REPOSITIONING AND DARK, QUIET ROOM WHEN ABLE HELPED TO RELEIVE HEADACHE. PT TOLERATING PO INTAKE WELL WITH NO C/O NAUSEA OR VOMITING. 1:1 SITTER REMAINS AT THE DOOR.
--- NOTE | 2023-01-14 11:07 | NUR ---
ASSUMPTION OF CARE: PATIENT RESTING QUIETLY IN BED. AWAKES TO VERBAL STIMULI. PATIENT REPORTS ABDOMINAL DISCOMFORT FROM THE NIGHT IS GONE AND THAT HIS HEADACHE IS IMPROVED. PATIENT APPEARS COMFORTABLE. PATIENT ON RA WITH SPO2 >96%. BREATHS ARE EVEN AND REGULAR. SBPS IN THE 120S.
--- NOTE | 2023-01-14 15:33 | NUR ---
TRANSFER TO [facility] FLOOR 13:40: PATIENT TRANSFERRED TO MEDICAL UNIT AROUND 13:40. REPORT CALLED TO TINY Redding RN. PATIENT NOTIFIED OF PLAN TO TRANSFER. PATIENT ABLE TO STAND AND TRANSFER TO WITH MIN ASSISTANCE. PATIENT CALM AND COOPERATIVE. NOTIFIED VANESSA, FRIEND ARRIVING TODAY TO OBTAIN CAR KEYS, OF TRANSFER. VERIFIED WITH PATIENT AGAIN THAT IT WAS OKAY FOR HER TO TAKE THE KEYS TO MOVE HIS CAR. THE PATIENT AGREED.
--- NOTE | 2023-01-14 19:13 | NUR ---
1:1 AT BEDSIDE, PATIENT ALERT AND ORIENTED X4, MAKES NEEDS KNOWN, PATIENT DROWSY, ROOM MITIGATED, PATIENT DENIED SI, VSS, ATE DINNER, PHONE CHARGING, FRIEND VANESSA CAME AND TOOK PATIENTS CAR [employer], SECURITY WITNESSED THIS, CALL LIGHT WITH IN REACH, RELAYED TO PM RN
--- NOTE | 2023-01-15 04:31 | NUR ---
SHIFT SUMMARY PT A&O X4, CALM AND COOPERATIVE WITH CARE. SITTER IN PLACE IN ROOM. SUICIDE SAFETY AND MITIGATION DONE Q4 HRS. SUICIDE REASSESMENT COMPLETED. NO SI SYMPTOMS PRESENTED. PT RESPONDS TO YES/NO QUESTIONS BUT IS NOT TALKATIVE. STAYED IN BED T/O SHIFT. GOT UP TO RESTROOM WITH 1P ASSIST AND VOIDED. NO NEED TO BLADDER SCAN THIS SHIFT. PT DENIES ANY PAIN OR N/V. REMAINS A CONFIDENTIAL PATIENT. PG TO KIMBERLY SALINE LOCKED. NO ACUTE EVENTS OVERNIGHT. BED KEPT IN THE LOWEST POSITION WITH 1:[address] DOORWAY. WILL CONTINUE TO MONITOR UNTIL SHIFT END.
[2023-01-15 05:19] VITALS: BP 117/69
[2023-01-15 07:04] VITALS: BP 131/79
[2023-01-15 15:05] LABS: Albumin, Blood 3.5 g/dL (3.4-5.0); Albumin/Globulin Ratio 0.7 (0.8-1.8); Bilirubin, Total 0.2 mg/dL (0.1-1.0); Bun/Creatinine Ratio 10.6 (12.0-20.0); Creatinine, Blood 0.76 mg/dL (0.60-1.20); Globulin, Blood 4.7 g/dL (2.2-4.0); Total Protein, Blood 8.2 g/dL (6.4-8.2)
[2023-01-15 15:16] VITALS: BP 126/76
--- NOTE | 2023-01-15 19:29 | NUR ---
PATIENT CLEARLY MAKES NEEDS KNOWN, DENIED SI FOR THE LAST TWO DAYS, FRIENDS HELPFUL AT BEDSIDE, PATIENT SHOWERED, BM DARK DUE TO CHARCOAL, ABD US DONE TODAY, LIVER ENZYMES ELEVATED MORE. DR KAUR ROUNDED ON PATIENT AT NOON, REPORTED PATIENTS COMPLIANCE AND DENIES SI, PATIENT PLEASANT TO ALL STAFF, NO SIGNS OF AGGRESION OR FUSTRATION. PATIENT REPORTS FEELING DIZZY WHEN GETTING UP, EASILY WALKED TO BATHROOM STEADY GAIT. PATIENT REPORTED LEFT ABD PAIN, RESOLVED. DR MORALEZ ROUNDED ALSO AND ORDERED LABS. PATIENT APOLOGETIC AND PLEASANT, CALL LIGHT WITH IN REACH, 1:1 AT BEDSIDE
[2023-01-15 21:35] VITALS: BP 134/78
--- NOTE | 2023-01-15 22:48 | NUR ---
PATIENT IS EXTREMELY GROGGY THIS EVENING, AND IS CONCERNED THAT "SOMETHING MIGHT BE WRONG INSIDE MY BRAIN". HE STATES THAT HIS VISION WILL GET BLURRY OR (GLAZED) AND HIS MOVEMENTS BECOME INTERMITTANTLY "JERKY". SOMETIMES THIS HAPPENS AT WORK MAKING IT IMPOSSIBLE FOR HIM TO SAFELY DO HIS JOB. HE IS ASKING IS THERE IS SOME WAY TO "CHECK IF WHAT'S GOING ON IS SOMETHING WRONG IN HIS BRAIN. TONIGHT, EYES ARE HALF CLOSED, AND PATIENT IS SLIGHTLY SWAYING SITTING UP AT THE SIDE OF THE BED WHILE HOLDING HIMSELF UP WITH HIS HANDS. HE REQUESTED A SHOWER TONIGHT, BUT I DID NOT FEEL THAT THIS WOULD BE SAFE IN HIS CURRENT STATE.
--- NOTE | 2023-01-16 04:23 | NUR ---
PATIENT SLEPT WELL ALL NIGHT WAKING ONLY ONCE TO USE THE BATHROOM AND HAVE A SNACK. SITTER IN PLACE AT ALL TIMES. 2400 ATIVAN AND HALDOL HELD PATIENT WAS EXTREMELY SOMNOLENT. PATIENT WAS VERY WOBBLY AND GLASSY EYED PRIOR TO FALLING ASLEEP. HE HAD REQUESTED A SHOWER, HOWEVER THIS RN WAS CONCERNED HE COULD BARELY HOLD HIMSELF UP SITTING ON THE SIDE OF THE BED. PATIENT HAD MENTIONED HIS CONCERN THAT HE HAS HAD INTERMITTANT EPISODES OF BLURRED VISION IN CONJUNCTION WITH UNCONTROLLABLE JERKING OF HIS HANDS. WHEN THIS HAS HAPPENED, HE HAS HAD DIFFICULTY PERFORMING HIS WORK PROPERLY. TYSON ASKED IF THERE IS A TEST TO FIND OUT IF THERE IS SOMETHING (WRONG WITH HIS BRAIN).
[2023-01-16 05:20] VITALS: BP 130/74
[2023-01-16 05:42] LABS: BASOPHILS ABSOLUTE AUTO 0.05 K/mm3 (0.00-0.23); BASOPHILS PERCENT AUTO 1 % (0-2); EOSINOPHILS ABSOLUTE AUTO 0.19 K/mm3 (0.00-0.68); EOSINOPHILS PERCENT AUTO 2 % (0-6); Hematocrit 39.1 % (37.0-53.0); Hemoglobin 13.4 g/dL (13.5-17.5); IMMATURE GRAN ABSOLUTE AUTO 0.07 K/mm3 (0.00-0.10); IMMATURE GRAN PERCENT AUTO 1 % (0-1); LYMPHOCYTES ABSOLUTE AUTO 2.17 K/mm3 (0.84-5.20); LYMPHOCYTES PERCENT AUTO 25 % (21-46); MONOCYTES ABSOLUTE AUTO 0.68 K/mm3 (0.16-1.47); MONOCYTES PERCENT AUTO 8 % (4-13); Mean Corpuscular HGB 29.1 pg (26.0-34.0); Mean Corpuscular HGB Conc 34.3 g/dL (31.5-36.5); Mean Corpuscular Volume 85 fL (80-100); Mean Platelet Volume 10.1 fL (9.1-12.4); NEUTROPHILS ABSOLUTE AUTO 5.39 K/mm3 (1.96-9.15); NEUTROPHILS PERCENT AUTO 63 % (41-73); Platelet Count 247 K/mm3 (150-400); RDW Coefficient Variation 12.5 % (11.7-14.2); RDW Standard Deviation 38.2 fL (35.1-46.3); White Blood Cell Count 8.55 K/mm3 (4.00-11.30)
[2023-01-16 06:07] LABS: Albumin, Blood 3.3 g/dL (3.4-5.0); Albumin/Globulin Ratio 0.8 (0.8-1.8); Bilirubin, Total 0.2 mg/dL (0.1-1.0); Bun/Creatinine Ratio 13.9 (12.0-20.0); Calcium, Blood 9.2 mg/dL (8.5-10.1); Creatinine, Blood 0.79 mg/dL (0.60-1.20); Globulin, Blood 4.3 g/dL (2.2-4.0); Potassium, Blood 3.7 mmol/L (3.5-5.5); Total Protein, Blood 7.6 g/dL (6.4-8.2)
[2023-01-16 07:23] VITALS: BP 129/77
[2023-01-16 15:10] VITALS: BP 125/66
--- NOTE | 2023-01-16 16:52 | NUR ---
SHIFT SUMMARY: Pt remains A&Ox3 this shift. VSS. Pain med for lower back pain effective. Pt denies suicidal ideation this shift. Very calm, cooperative and pleasant. Ambulating independently. 1:1 sitter at bedside. Continent of bowel/bladder. Tolerating diet. No further needs at this time. Will continue to monitor this shift.
[2023-01-16 19:40] VITALS: BP 129/82
--- NOTE | 2023-01-17 03:56 | NUR ---
SHIFT SUMMARY. SHIFT HAS BEEN MOSTLY UNREMARKABLE. PT AOX4, PLEASANT, COOPERATIVE WITH CARE. 1:[address] FOR PT SAFETY. SUICIDE RISK REASSESSMENT PERFORMED AT BEGINNING OF SHIFT AT WHICH TIME PT DENIED ANY RECENT OR CURRENT SI. PT COMPLAINED OF SOME LOWER BACK PAIN EARLY IN SHIFT. CALLED HOSPITALIST AYESHA PRN MOTRIN WAS NOT YET AVAILABLE, ADMINISTERED PRN FLEXERIL ORDERED BY AYESHA SINCE WHICH TIME PT HAS BEEN SLEEPING COMFORTABLY IN BED. REPORTED THAT PT WAS FEELING RESTLESS EARLY IN SHIFT TO AYESHA AND HE SWITCHED SCHEDULED ORAL HALDOL TO PRN. HAVE NOT ADMINISTERED PRN HALDOL OR SCHEDULED ATIVAN PT HAS BEEN SLEEPING COMFORTABLY THROUGHOUT SHIFT AFTER PRN FLEXERIL ADMINISTRATION. SATTING WELL ON ROOM AIR. INDEPENDENT WITHIN ROOM OUTSIDE OF SITTER REMAINING IN PLACE FOR SAFETY. BED LOCKED IN LOWEST POSITION. CALL LIGHT LEFT WITHIN REACH.
[2023-01-17 04:51] VITALS: BP 117/70
[2023-01-17 06:56] LABS: Albumin, Blood 3.2 g/dL (3.4-5.0); Albumin/Globulin Ratio 0.8 (0.8-1.8); Bilirubin, Total 0.3 mg/dL (0.1-1.0); Creatinine, Blood 0.8 mg/dL (0.60-1.20); Potassium, Blood 3.9 mmol/L (3.5-5.5); Total Protein, Blood 7.2 g/dL (6.4-8.2)
[2023-01-17 07:26] VITALS: BP 118/63
[2023-01-17 15:45] VITALS: BP 123/73
--- NOTE | 2023-01-17 17:31 | NUR ---
SHIFT SUMMARY PATIENT DENIES ANY SUICIDAL IDEATION DURING THIS SHIFT. HE DOES EXPRESS ANXIETY AND PAIN. MEDICATED PER EMAR. PATIENT UP AND WALKING ORDAZ WITH SITTER. HE IS TALKATIVE LAST COUPLE HOURS OF SHIFT. BED IN LOW POSITION. CALL LIGHT IN REACH. PATIENT MAKES HIS NEEDS KNOWN. WILL CONTINUE TO MONITOR.
[2023-01-17 19:53] VITALS: BP 119/65
[2023-01-17] MEDS ORDERED: CYMBALTA20 M2 PO (20:03)
[2023-01-17] MEDS ORDERED: Ventolin/Prove6.7 GM INH (20:04)
--- NOTE | 2023-01-18 03:46 | NUR ---
SHIFT SUMMARY. SHIFT HAS BEEN MOSTLY UNREMARKABLE. PT AOX4, PLEASNT, COOPERATIVE WITH CARE. DENIED ANY SI OR NEW THOUGHTS OF SELF HARM CURRENTLY OR PLANS FOR SELF HARM POST DISCHARGE ON QSHIFT SUICIDE RISK REASSESSMENT. ANXIOUS TO LEAVE AND STATES THAT HE IS TIRED OF BEING IN THE HOSPITAL. HOPING TO GET PLACEMENT BEFORE MONDAY BUT STATES THAT IF PLACEMENT IS NOT ACQUIRED BY MONDAY HE MAY JUST GO HOME HE DOES NOT WANT TO TBE IN THE HOSPITAL ANYMORE. NO PAIN REPORTED THIS SHIFT. SWITCHED PO SCHEDULED ATIVAN TO PRN PER ORDER OF HOSPITALIST AYESHA. PT HAS BEEN ABLE TO SLEEP THROUGH MOST OF SHIFT THUS FAR AFTER PO ATIVAN ADMINISTRATION. 1:[address] PT CALLS APPROPRIATELY AND IS ABLE TO MAKE NEEDS KNOWN. INDEPENDENT WITHIN ROOM. BED LOCKED IN LOWEST POSITION.
[2023-01-18 05:43] VITALS: BP 126/75
[2023-01-18 07:26] VITALS: BP 120/63
[2023-01-18 14:44] LABS: SARS-Cov-2 (COVID-19) PCR, MMC NEGATIVE (NEGATIVE)
[2023-01-18 16:13] VITALS: BP 120/63
--- NOTE | 2023-01-18 16:18 | NUR ---
SECURE TRANSPORT CALL TO [facility], TRANSPORTATION [employer] FOR PATIENT'S INSURANCE [facility], IN [facility]. SECURE TRANSPORT SCHEDULED FOR 1800 FROM [facility] TO [facility] FOR INPATIENT PSYCHIATRIC TREATMENT.
--- NOTE | 2023-01-18 19:15 | NUR ---
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 PATIENT REQUESTING HIS WALLET. SPOKE WITH SECURITY. ALL WAS SIGNED OUT ON MONDAY. IT IS NOTED THAT FRIEND VANESSA GARCIA PICKED UP WALLET AFTER THE KEYS PER RN REQUEST. PATIENT HAS BEEN UPDATED ON HIS BELONGINGS STATUS AND SATISFIED WITH ANSWER. PATIENT AGREABLE TO GO TO INPATIENT REHAB FOR NOW. SECURE TRANSPORT ARRIVED AT 1845. PAPERS GIVEN TO STAFF, PATIENT COOPERATTIVE WITH ALL CARE. RN TO RN REPORT GIVEN TO JATIN TAVARES AT [facility] AT 1440 THIS AFTERNOON.
== END 2023-01-18 18:46 | DRG 917 ==
LOC: ER 12:52 → ICUE 15:48 → MEDS 15:48 → ICUE 15:48 → MEDS 01-14 13:49 → ENPENDDIS 01-18 16:16 → MEDS 01-18 18:46
PROVIDERS: Internal Medicine; Internal Medicine Critical Care Medicine; Student in an Organized Health Care Education/Training Program; ADMIT Hospitalist
PROC: 5A1945Z Respiratory Ventilation, 24-96 Consecutive Hours (ICD-10-PCS; principal; 2023-01-10)
PROC: 0BH17EZ Insertion of Endotracheal Airway into Trachea, Via Natural or Artificial Opening (ICD-10-PCS; 2023-01-10)
PROC: 0DH67UZ Insertion of Feeding Device into Stomach, Via Natural or Artificial Opening (ICD-10-PCS; 2023-01-13)
DX: T39.1X2A Poisoning by 4-Aminophenol derivatives, intentional self-harm, initial encounter (principal); G92.8 Other toxic encephalopathy; J96.00 Acute respiratory failure, unspecified whether with hypoxia or hypercapnia; T17.828A Food in other parts of respiratory tract causing other injury, initial encounter; R94.5 Abnormal results of liver function studies; F25.9 Schizoaffective disorder, unspecified; T45.0X2A Poisoning by antiallergic and antiemetic drugs, intentional self-harm, initial encounter; T44.4X2A Poisoning by predominantly alpha-adrenoreceptor agonists, intentional self-harm, initial encounter; T44.3X2A Poisoning by other parasympatholytics [anticholinergics and antimuscarinics] and spasmolytics, intentional self-harm, initial encounter; T48.3X2A Poisoning by antitussives, intentional self-harm, initial encounter; F43.20 Adjustment disorder, unspecified; Z20.822 Contact with and (suspected) exposure to COVID-19; F15.10 Other stimulant abuse, uncomplicated; R45.1 Restlessness and agitation; R16.0 Hepatomegaly, not elsewhere classified; M54.50 Low back pain, unspecified; Z78.1 Physical restraint status
CPT/HCPCS: 36415; 51701; 51702; 70450; 71045; 76705; 80047; 80048; 80053; 80076; 81001; 82140; 82550; 82803; 82947; 83605; 83690; 83735; 85014; 85025; 85610; 93005; 93010; 94002; 94003; 94762; 96361-59; 96365-59; 96376-59; 99285-25; A9270; C1751; C9113; G0480; J0132; J0696; J1630; J1650; J1885; J2060; J2250; J2704; J3010; J3480; J7030; J7050; J7060; J7070; U0002